=== PATIENT | female | born 1940 | race African-American/Black ===

== ENCOUNTER 2020-11-14 10:46 | Inpatient (IN) ==
[2020-11-14 11:05] LABS: Basophils % 0.3 % (0.0-0.8); Eosinophils % 0.2 % (0.00-10.9); Hematocrit 35.6 VOL% (35.7-47.0); Hemoglobin 11.9 GM/DL (12.0-16.0); Immature Granulocytes % 0.5 %; Immature Granulocytes Absolute 0.06 #; Lymphocytes # 1.4 10*3/uL (1.4-4.0); Lymphocytes % 10.4 % (21.3-54.2); Mean Corpuscular HGB Conc 33.4 GM/DL (32-36); Mean Corpuscular Volume 93.9 FL (87-102); Mean Platelet Volume 12.6 FL (9.6-12.0); Monocytes % 4.7 % (1.7-12.7); Neutrophils % 83.9 % (38.7-73.9); Platelet Count 215 T/CUMM (130-400); Red Blood Count 3.79 MC/CUMM (3.8-5.5); Red Cell Distribution Width 12.7 % (9.3-17.3); White Blood Count 13.2 T/CUMM (4-12)
[2020-11-14] MEDS ORDERED: FUROSEMIDE 40 MG/4 ML VIAL IV STA (11:15)
[2020-11-14 11:24] LABS: Band Neutrophils 1 % (0-10); Hypochromasia 1+; Lymphocytes 14 % (20-55); Microcytosis 1+; Platelet Estimate Adequate; Segmented Neutrophils 80 % (50-85); Total Cells Counted 100
[2020-11-14 11:26] LABS: INR 1.1; PT Patient Result 11.4 SECS (9.8-11.9); Partial Thromboplastin Time 28.4 SECS (23.9-33.8)
[2020-11-14 11:50] LABS: Albumin 4.2 G/DL (3.4-5.0); Bilirubin,Total 0.6 MG/DL (0.2-1.0); Calcium 9.9 MG/DL (8.5-10.1); Osmolality,Calculated 280.7 MOS/KG (273-304); Total Protein 7.8 G/DL (6.4-8.3)
[2020-11-14] MEDS ORDERED: diphenhydrAMINE CAP 25 MG CAPSULE PO ONE (12:50)
[2020-11-14] MEDS ORDERED: DIAZEPAM 5 MG TABLET PO ONE (12:50)
[2020-11-14] MEDS ORDERED: SODIUM CHLORIDE 0.9% 1,000 ML IV SCH (13:00)
[2020-11-14] MEDS ORDERED: fentaNYL 100 MCG/2 ML VIAL ONE (14:45)
[2020-11-14] MEDS ORDERED: MIDAZOLAM 2 MG/2 ML VIAL ONE (14:45)
[2020-11-14] MEDS ORDERED: VERAPAMIL 5 MG/2 ML VIAL ONE (14:45)
[2020-11-14] MEDS ORDERED: NITROGLYCERIN DRIP 50 MG/250 ML BOTTLE IV ONE (14:45)
[2020-11-14] MEDS ORDERED: LIDOCAINE 1% 20 ML VIAL ONE (14:55)
[2020-11-14] MEDS ORDERED: HEPARIN/NACL 0.9% 2 UNITS/ML 1,000 ML IV ONE (14:55)
[2020-11-14] MEDS ORDERED: ENOXAPARIN 60 MG/0.6 ML SYRINGE ONE (15:15)
[2020-11-14] MEDS ORDERED: NITROGLYCERIN SL 0.4 MG TABLET SL PRN (16:06)
[2020-11-14] MEDS ORDERED: ZALEPLON 5 MG CAPSULE PO PRN (16:06)
[2020-11-14] MEDS ORDERED: ACETAMINOPHEN 325 MG TABLET PO PRN (16:06)
[2020-11-14] MEDS ORDERED: ONDANSETRON 4 MG/2 ML VIAL IV PRN (16:06)
[2020-11-14] MEDS ORDERED: hydrALAZINE 20 MG/1 ML VIAL IV PRN (16:10)
[2020-11-14] MEDS ORDERED: SIMVASTATIN 40 MG TABLET PO SCH (21:00)
[2020-11-14] MEDS: carvediloL 3.125 MG TABLET PO SCH (22:43)
[2020-11-14] MEDS: TICAGRELOR 90 MG TABLET PO SCH (22:43)
[2020-11-14] MEDS: FERROUS SULFATE 325 MG TABLET PO SCH (22:43)
[2020-11-15 06:39] LABS: Basophils % 0.3 % (0.0-0.8); Eosinophils # 0.1 10*3/uL (0.0-0.87); Eosinophils % 0.8 % (0.00-10.9); Hematocrit 30.8 VOL% (35.7-47.0); Hemoglobin 10.2 GM/DL (12.0-16.0); Immature Granulocytes % 0.5 %; Immature Granulocytes Absolute 0.03 #; Lymphocytes # 0.9 10*3/uL (1.4-4.0); Lymphocytes % 14.8 % (21.3-54.2); Mean Corpuscular HGB Conc 33.1 GM/DL (32-36); Mean Corpuscular Volume 92.8 FL (87-102); Mean Platelet Volume 13.3 FL (9.6-12.0); Monocytes % 8.6 % (1.7-12.7); Platelet Count 175 T/CUMM (130-400); Red Blood Count 3.32 MC/CUMM (3.8-5.5); Red Cell Distribution Width 12.9 % (9.3-17.3); White Blood Count 6.1 T/CUMM (4-12)
[2020-11-15 06:52] LABS: Calcium 9.6 MG/DL (8.5-10.1); Osmolality,Calculated 285.5 MOS/KG (273-304)
[2020-11-15 06:58] LABS: Risk Ratio 2.8
[2020-11-15 07:01] LABS: Hypochromasia 1+; Microcytosis 1+; Ovalocytes Slight; Platelet Estimate Adequate
[2020-11-15] MEDS ORDERED: POTASSIUM CHLORIDE 20 MEQ TABLET PO ONE (08:08)
[2020-11-15] MEDS: ASPIRIN CHEW 81 MG TABLET PO SCH (10:40)
[2020-11-15] MEDS: TICAGRELOR 90 MG TABLET PO SCH ×2 (10:40→20:40)
[2020-11-15] MEDS: MULTIVITAMIN (CENTRUM) TABLET PO SCH (10:41)
[2020-11-15] MEDS: carvediloL 3.125 MG TABLET PO SCH ×2 (10:41→20:40)
[2020-11-15] MEDS: SPIRONOLACTONE 25 MG TABLET PO SCH (10:41)
[2020-11-15] MEDS: FERROUS SULFATE 325 MG TABLET PO SCH ×2 (10:41→20:40)
[2020-11-15] MEDS: SACUBITRIL/VALSARTAN 49-51 MG TABLET PO SCH ×2 (10:41→20:40)
[2020-11-15] MEDS ORDERED: FUROSEMIDE 20 MG/2 ML VIAL IV ONE (15:00)
[2020-11-15] MEDS ORDERED: ROSUVASTATIN 20 MG TABLET PO SCH (21:00)
[2020-11-16 03:59] LABS: Basophils % 0.5 % (0.0-0.8); Eosinophils # 0.2 10*3/uL (0.0-0.87); Eosinophils % 2.7 % (0.00-10.9); Hematocrit 32.2 VOL% (35.7-47.0); Hemoglobin 10.5 GM/DL (12.0-16.0); Immature Granulocytes % 0.5 %; Immature Granulocytes Absolute 0.03 #; Lymphocytes # 1.1 10*3/uL (1.4-4.0); Lymphocytes % 19.1 % (21.3-54.2); Mean Corpuscular HGB Conc 32.6 GM/DL (32-36); Mean Corpuscular Volume 93.6 FL (87-102); Mean Platelet Volume 13.1 FL (9.6-12.0); Monocytes % 11.5 % (1.7-12.7); Neutrophils % 65.7 % (38.7-73.9); Platelet Count 154 T/CUMM (130-400); Red Blood Count 3.44 MC/CUMM (3.8-5.5); Red Cell Distribution Width 12.7 % (9.3-17.3); White Blood Count 5.6 T/CUMM (4-12)
[2020-11-16 04:18] LABS: Calcium 9.5 MG/DL (8.5-10.1)
[2020-11-16 04:32] LABS: Hypochromasia 1+; Microcytosis 1+; Platelet Estimate Adequate
[2020-11-16] MEDS: FERROUS SULFATE 325 MG TABLET PO SCH (08:36)
[2020-11-16] MEDS: SACUBITRIL/VALSARTAN 49-51 MG TABLET PO SCH (08:36)
[2020-11-16] MEDS: SPIRONOLACTONE 25 MG TABLET PO SCH (08:36)
[2020-11-16] MEDS: carvediloL 3.125 MG TABLET PO SCH (08:36)
[2020-11-16] MEDS: TICAGRELOR 90 MG TABLET PO SCH (08:36)
[2020-11-16] MEDS: ASPIRIN CHEW 81 MG TABLET PO SCH (08:36)
[2020-11-16] MEDS: MULTIVITAMIN (CENTRUM) TABLET PO SCH (08:36)
[2020-11-16 11:32] VITALS: BP 108/52
== END 2020-11-16 14:18 | disposition home or self-care (01) | DRG 248 ==
LOC: N.ED 10:46 → N.EDINP 12:50 → N.TELEN 16:34
PROVIDERS: ADMIT Internal Medicine Cardiovascular Disease; ATTEND Internal Medicine Cardiovascular Disease
PROC: CLCCHCL (ICD-10-PCS; 2020-11-14 14:45)